=== PATIENT | male | born 1980 | race Hispanic/Latino ===

== ENCOUNTER 2019-06-15 10:43 | Emergency (ER) | payer SELFPAY ==
[2019-06-15 11:15] LABS: #Eosinphils 0.2 thou/uL (0.0-0.7); #Lymphocytes 2.7 thou/uL (1.20-3.40); #Monocytes 0.6 thou/uL (0.11-0.59); #Neutrophils 3.6 thou/uL (1.40-6.50); %Basophils 0.5 % (0.0-1.0); %Eosinophils 2.6 % (0.0-10.0); %Lymphocytes 37.8 % (21.0-51.0); %Monocytes 8.3 % (0.0-10.0); %Neutrophils 50.8 % (42.0-75.0); Hemoglobin 15.1 g/dL (14.0-18.0); Mean Corpuscular HGB CONC 34.1 g/dL (32.0-36.0); Mean Corpuscular Hemoglobin 28.7 pg (27.0-31.0); Mean Corpuscular Volume 84.1 fL (78.0-98.0); Mean Platelet Volume 7.4 fL (7.4-10.4); Platelet Count 292 thou/uL (130-400); Red Blood Cell (RBC) Count 5.26 mill/uL (4.70-6.10); White Blood Cell (WBC) Count 7.1 thou/uL (4.8-10.8)
[2019-06-15 11:39] LABS: ALT (SGPT) 32 U/L (8-55); AST (SGOT) 19 U/L (5-34); Albumin 4.3 g/dL (3.5-5.0); Alkaline Phosphatase 70 U/L (40-110); Anion Gap 13 mmol/L (10-20); BUN (Urea Nitrogen) 17 mg/dL (8.9-20.6); Bilirubin, Total 0.4 mg/dL (0.2-1.2); Calc. Creatinine Clearance 0 mL/min (70-130); Calcium 9.3 mg/dL (7.8-10.44); Carbon Dioxide 25 mmol/L (22-29); Chloride 103 mmol/L (98-107); Estimated GFR-MDRD Greater than 90; Globulin 2.9 g/dL (2.4-3.5); Glucose 84 mg/dL (70-105); Lipase 15 U/L (8-78); Potassium 4.5 mmol/L (3.5-5.1); Protein, Total 7.2 g/dL (6.0-8.3); Sodium 136 mmol/L (136-145)
[2019-06-15] MEDS ORDERED: Ondansetron PF 4 MG/2 ML Vial ONE (12:05)
[2019-06-15] MEDS ORDERED: Morphine 4 MG/ML VIAL ONE (12:05)
[2019-06-15] MEDS ORDERED: ISOVUE-370 76%-LOCM 1 ML ONE (12:47)
--- NOTE | 2019-06-15 12:48 | CT ---
EXAM: Abdomen and pelvic CT scan with contrast: HISTORY: Abdominal pain COMPARISON: None FINDINGS: The visualized lung bases are clear. Liver: Low-attenuation of the hepatic parenchyma, indicative of hepatic steatosis Gallbladder: Unremarkable. Pancreas: Unremarkable Spleen: Unremarkable. Adrenal glands: Unremarkable. Kidneys: No renal calculus or acute obstruction. No solid or cystic mass. Bowel: No evidence for bowel obstruction. Urinary Bladder: The urinary bladder is unremarkable. Adenopathy: No adenopathy within the abdomen or pelvis. Free Air: No free air. Ascites: No ascites. Mild vascular calcification is present. Osseous structures: No acute osseous abnormalities. There are scattered degenerative changes. IMPRESSION: No acute abnormalities are visualized. Hepatic steatosis. Correlate with liver function enzymes.
[2019-06-15 13:44] LABS: Bilirubin Negative (Negative); Blood, Urine Negative (Negative); Clarity Clear (Clear); Glucose, Urine (Dipstick) Normal (Negative); Leukocyte Negative Leu/uL (Negative); Nitrite Negative (Negative); Protein, Urine (Dipstick) Negative (Neg-Trace); Urobilinogen Normal mg/dL (Less than 2)
== END 2019-06-15 14:16 | disposition home or self-care (01) ==
LOC: ERS 10:43
DX: R10.32 Left lower quadrant pain (principal)
CPT/HCPCS: 36415; 74177; 80053; 81003; 83690; 85025; 96361; 96374; 96375; J2270; J2405; Q9966

== ENCOUNTER 2019-06-16 16:59 | Emergency (ER) | payer SELFPAY | END 2019-06-16 18:33 | disposition left against medical advice (07) | LOC: ERS 16:59 | DX: Z53.21 Procedure and treatment not carried out due to patient leaving prior to being seen by health care provider (principal) | CPT/HCPCS: 93005 ==